=== PATIENT | female | born 1945 | race Caucasian/White ===

== ENCOUNTER 2016-09-13 10:55 | Emergency (ER) | payer MEDICARE, BC ==
[2016-09-13 11:21] LABS: APTT 28.4 SECONDS (22.8-39.4); INR 1.06 (0.85-1.17); PROTIME 13.7 SECONDS (11.6-15.0)
[2016-09-13 11:39] LABS: ALBUMIN 3.5 g/dL (3.4-5.0); BILIRUBIN - TOTAL 0.82 mg/dL (0.2-1.3); CALCIUM 8.9 mg/dL (8.5-10.1); CARBON DIOXIDE 20.9 mmol/L (21.0-32.0); CREATININE - SERUM 0.8 mg/dL (0.6-1.3); PROTEIN - SERUM 6.8 g/dL (6.4-8.2)
[2016-09-13 11:45] LABS: BASOPHILS 0.5 % (0.0-2.0); EOSINOPHILS 3.4 % (0-7); HEMATOCRIT 40.1 % (36.0-48.0); HEMOGLOBIN 13.2 g/dL (12-16); IMMATURE GRANULOCYTES 0.1 % (0-5); LYMPHOCYTES 17.2 % (15-50); MCH 31.2 pg (26.0-34.0); MCHC 32.9 g/dL (31.0-37.0); MCV 94.8 fL (80.0-100.0); MEAN PLATELET VOLUME 12.3 fL (7.4-10.4); MONOCYTES 11.2 % (2-11); NEUTROPHILS 67.6 % (40-80); PLATELET COUNT 176 10x3/uL (130-400); RBC 4.23 10x6/uL (4.00-5.40); WBC 7.9 10x3/uL (4.8-10.8)
[2016-09-13 11:47] LABS: ANION GAP 18.9 mmol/L (8-16)
== END 2016-09-13 13:23 | disposition short-term general hospital (02) ==
LOC: D.ER 10:55
PROVIDERS: Emergency Medicine
DX: I63.9 Cerebral infarction, unspecified (principal)